=== PATIENT | male | born 1965 ===

== ENCOUNTER → 2020-09-07 | Outpatient (CLI) | payer OTHER ==
[~2020-09-07] MED LIST: HYZAAR 100-251 UDTAB PO
== END | disposition home or self-care (01) ==
LOC: MRI 09-06 09:15
PROVIDERS: ATTEND Neurological Surgery
DX: M53.82 Other specified dorsopathies, cervical region (principal); M50.00 Cervical disc disorder with myelopathy, unspecified cervical region; M51.26 Other intervertebral disc displacement, lumbar region